=== PATIENT | male | born 1995 | race Asian ===

== ENCOUNTER 2018-02-15 13:49 | Emergency (ER) | payer MEDICAID ==
[~2018-02-15] VITALS: Ht 182.9 cm; Wt 72.6 kg
[2018-02-15 14:00] VITALS: Ht 182.9 cm; Wt 72.6 kg
[2018-02-15 15:44] LABS: PLATELET COUNT 318 x10^3mcL (130-400); RED CELL DISTRIBUTION WIDTH 12.9 % (11.5-14.5)
[2018-02-15 15:56] LABS: CALCIUM 9.6 mg/dL (8.5-10.1); CARBON DIOXIDE 30.4 mmol/L (21-32); CHLORIDE SERUM 100 mmol/L (98-107); CREATININE SERUM 1.1 mg/dL (0.7-1.3); GFR1 > 60 mL/min; GLUCOSE SERUM 104 mg/dL (74-106); POTASSIUM SERUM 4.8 mmol/L (3.5-5.1); SODIUM SERUM 138 mmol/L (136-145)
[2018-02-15 16:01] LABS: ALBUMIN 3.5 g/dL (3.4-5.0); ALKALINE PHOSPHATASE 106 U/L (46-116); ALT/SGPT 270 U/L (16-63); AST/SGOT 100 U/L (15-37); BILIRUBIN TOTAL 0.6 mg/dL (0.20-1.00); LIPASE 144 IU/L (73-393)
[2018-02-15 16:03] LABS: TOTAL PROTEIN, SERUM 8.3 g/dL (6.4-8.2)
[2018-02-15 16:29] LABS: BAND NEUTROPHIL 9 % (0-10); SEGMENTED NEUTROPHILS 78 % (37-75)
[2018-02-15 16:30] LABS: MONOCYTE 5 % (0-7); rbc morphology (normal/abnorm) NORMAL (NORMAL)
[2018-02-15 16:31] LABS: PLATELET MORPHOLOGY LARGE PLATELET SEEN
[2018-02-15 18:12] VITALS: BP 109/60
== END 2018-02-15 18:12 | disposition home or self-care (01) ==
LOC: ED 13:49
PROVIDERS: Emergency Medicine
DX: E86.0 Dehydration (principal); B34.9 Viral infection, unspecified; F17.210 Nicotine dependence, cigarettes, uncomplicated
CPT/HCPCS: J2405; J7030; Q0092